=== PATIENT | male | born 1960 | race Caucasian/White ===

== ENCOUNTER 2016-05-10 09:28 | Day surgery (SDC) | payer MEDICAID ==
[~2016-05-10 09:28] MED LIST: LIDO/EPI 1% **Not for Epidural 20 ML MDV ONE
[2016-05-10] MEDS ORDERED: LR 1,000 ML IV ONE (10:23)
[2016-05-10] MEDS ORDERED: MIDAZOLAM 2 MG/2 ML VIAL ONE (10:44)
[2016-05-10] MEDS ORDERED: fentaNYL 100 MCG/2 ML INJ ONE ×3 (10:53→14:40)
[2016-05-10] MEDS ORDERED: PROPOFOL 200 MG/20 ML VIAL ONE ×2 (10:54→11:42)
[2016-05-10] MEDS ORDERED: ROCURONIUM 50 MG/5 ML VIAL ONE (10:54)
[2016-05-10] MEDS ORDERED: DEXAMETHASONE 4 MG/ML VIAL ONE ×2 (10:54)
[2016-05-10] MEDS ORDERED: LIDOCAINE 2% 100 MG/5 ML SYR IVP ONE (10:54)
[2016-05-10] MEDS ORDERED: OXYMETAZOLINE 30 ML NASAL SPRAY EACHNARE PRN (11:27)
[2016-05-10] MEDS ORDERED: SUGAMMADEX SODIUM 200 MG/2 ML VIAL IVP ONE (12:19)
[2016-05-10] MEDS ORDERED: HYDROCODONE/APAP 5/325 TAB PO PRN (13:14)
[2016-05-10] MEDS ORDERED: ONDANSETRON DISINTEGRATING 4 MG TAB PO PRN (13:15)
[2016-05-10] MEDS ORDERED: ONDANSETRON 4 MG/2 ML VIAL IVP PRN (13:15)
[2016-05-10] MEDS ORDERED: D5W 1/2 NS 1,000 ML IV SCH (13:30)
[2016-05-10] MEDS ORDERED: OXYMETAZOLINE 30 ML NASAL SPRAY EACHNARE ONE (13:30)
--- NOTE | 2016-05-16 22:28 | GOP ---
DATE OF OPERATION: SURGEON: Nicho Horne MD ANESTHESIA: General. PREOPERATIVE DIAGNOSIS: Nasal obstruction. POSTOPERATIVE DIAGNOSIS: Nasal obstruction. PROCEDURE PERFORMED: 1. Septoplasty. 2. Bilateral inferior turbinate reduction. FINDINGS: Obstructive septal deviation and bilateral inferior turbinate hypertrophy. SPECIMENS: None. ESTIMATED BLOOD LOSS: 10 mL. INDICATIONS: Patient was seen in outpatient clinic and found to have significant nasal obstruction secondary to nasal septal deviation and bilateral inferior turbinate hypertrophy. Given his history and findings, he was determined to be an appropriate candidate for the above-stated procedures. The risks, benefits, and alternatives to the procedures were explained at length to the patient, who stated he understood and agreed. DESCRIPTION OF PROCEDURE: Patient was brought to the operating room by Anesthesiology, and placed on the operating table. Once the appropriate level of anesthesia was achieved, the patient was prepped and draped in usual fashion. Bilateral nasal columella, septum, and inferior turbinates were injected with 1% lidocaine with 100,000 epinephrine. A total of 9 mL was injected. A left hemitransfixion incision was completed with a needle tip Bovie electrocautery. A combination of [place] elevator and suction Tabiona were used to elevate the mucosal flap in a subperichondrial and then subperiosteal plane on the left. This was done under video endoscopic visualization. A vertical incision was made with the Felisa elevator at the bony-cartilaginous junction. The contralateral septal mucosa was elevated with the Felisa. The deviated portion of the quadrangular cartilage was incised with a D knife. Care was taken to leave a centimeter of dorsal and caudal cartilaginous septum. The incised portion of the quadrangular cartilage was then elevated off the contralateral mucosa with the suction elevator. This was removed en bloc and placed aside. A straight Holloway scissors was then used to cut the dorsal aspect of the bony septum. The bony septal deviation was then removed with a Darren. There were deviated portions of the maxillary crest that were then excised with a 3 mm osteotome. These were removed with the Darren. The flap was laid back in place, and the bilateral nasal cavities reviewed with the video endoscope, and the septum was seen to be straight. The hemitransfixion incision was closed with 4-0 interrupted chromic sutures. Attention was then turned to the turbinates. Under video endoscopic visualization, the right turbinate submucosal resection was completed with a 2 mm microdebrider. There was good reduction of soft tissue, and the turbinate was then in-fractured, then out-fractured using a Tabiona elevator. At the left a 2 mm microdebrider was used to complete submucosal resection under video endoscopic visualization. There was good soft tissue reduction with this, and the turbinate was then in-fractured prior to being out-fractured with a Tabiona elevator. The nasal cavity was irrigated with normal saline. This was suctioned clean. There was minimal bleeding seen from the turbinates or within the nasal cavities. There was good visualization from bilateral nasal vestibule through to the nasopharynx at the completion of the case. Bacitracin- coated Red splints were placed in bilateral nasal cavities. These were secured in place using a 3-0 Prolene suture. The patient tolerated these procedures well, and was extubated in the operating room prior to being transferred in good condition to the postanesthesia care unit. COMPLICATIONS: None. /[id number]/MODL MTDD
== END 2016-05-10 17:30 | disposition home or self-care (01) ==
LOC: FSGY 09:28
PROVIDERS: ATTEND Otolaryngology
PROC: 09TL4ZZ Resection of Nasal Turbinate, Percutaneous Endoscopic Approach (ICD-10-PCS; 2016-05-10)
PROC: 09BM4ZZ Excision of Nasal Septum, Percutaneous Endoscopic Approach (ICD-10-PCS; principal; 2016-05-10 11:00)
DX: J34.2 Deviated nasal septum (principal); J34.3 Hypertrophy of nasal turbinates; J34.89 Other specified disorders of nose and nasal sinuses; E66.9 Obesity, unspecified; G47.33 Obstructive sleep apnea (adult) (pediatric); Z68.41 Body mass index [BMI] 40.0-44.9, adult
CPT/HCPCS: J1100; J2001; J2250; J2405; J2704; J3010

== ENCOUNTER 2016-05-10 21:22 | Emergency (ER) | payer MEDICAID ==
[2016-05-10 21:29] VITALS: BP 153/78; PULSE 81; RESP 16; TEMP 98.6; O2SAT 92
== END 2016-05-10 21:52 | disposition left against medical advice (07) ==
DX: Z53.21 Procedure and treatment not carried out due to patient leaving prior to being seen by health care provider (principal)